=== PATIENT | male | born 1970 | race Caucasian/White ===

== ENCOUNTER 2020-12-07 21:26 | Inpatient (IN) | payer MEDICAID ==
[~2020-12-07] VITALS: Ht 177.8 cm; Wt 128.6 kg
[2020-12-07 22:24] VITALS: BP 160/95
[2020-12-08] MEDS ORDERED: NITROGLYCERIN 0.4 MG BOTTLE (25 TABS) SL PRN ×2 (01:00→01:30)
[2020-12-08] MEDS ORDERED: MAGNESIUM HYDROXIDE 8%, 30ML UDC PO PRN (01:00)
[2020-12-08] MEDS ORDERED: ENOXAPARIN 40 MG/0.4 ML SQ SCH (01:00)
[2020-12-08] MEDS ORDERED: ACETAMINOPHEN 650 MG/20.3 ML UDC PO PRN (01:00)
[2020-12-08] MEDS ORDERED: ONDANSETRON 2MG/ML, 2ML IV PRN (01:00)
[2020-12-08] MEDS ORDERED: NITROGLYCERIN 0.4 MG/SPRAY SL PRN (01:30)
[2020-12-08] MEDS ORDERED: PLEASE ENTER ALLERGIES MC SCH (01:30)
[2020-12-08] MEDS: ATORVASTATIN 80 MG TABLET PO SCH ×2 (02:18→20:44)
[2020-12-08] MEDS: FUROSEMIDE 20 MG/2 ML IVPush SCH ×2 (02:18→07:50)
[2020-12-08] MEDS: MORPHINE SULFATE 4 MG/ML, 1ML IVPush PRN ×2 (02:19→07:50)
[2020-12-08 02:24] VITALS: BP 176/118
[2020-12-08] MEDS ORDERED: hydrALAzine 20 MG/ML, 1ML IV ONE (03:00)
[2020-12-08 03:18] LABS: TROPONIN I 0.015 ng/mL (0.000-0.045)
[2020-12-08 04:30] VITALS: BP 161/98
[2020-12-08 05:02] LABS: BASOPHILS % (AUTO) 1 % (0-1); EOSINOPHILS % (AUTO) 5 % (1-7); LYMPHOCYTES % (AUTO) 45 % (22-44); MEAN CORPUSCULAR HEMOGLOBIN 32.4 pg (27.5-34.5); MEAN CORPUSCULAR HGB CONC 35.4 g/dL (33.2-36.2); MEAN PLATELET VOLUME 8.4 fL (7.4-10.4); MONOCYTES % (AUTO) 8 % (2-9); NEUTROPHILS % (AUTO) 42 % (42-75); PLATELET COUNT 258 x10^3/uL (130-400); RED BLOOD COUNT 4.98 x10^6/uL (4.38-5.82); RED CELL DISTRIBUTION WIDTH 13.2 % (9.4-14.8)
[2020-12-08 05:09] LABS: ALBUMIN 3.6 g/dL (3.4-5.0); ANION GAP 6 mmol/L (5-15); CHLORIDE 102 mmol/L (98-107)
[2020-12-08 05:17] LABS: ALANINE AMINOTRANSFERASE 62 U/L (12-78); ALKALINE PHOSPHATASE 93 U/L (45-117); BILIRUBIN,TOTAL 1.1 mg/dL (0.2-1.0); CHOL/HDL RATIO 4.9; CHOLESTEROL, TOTAL 197 mg/dL (140-239); CREATININE 1.06 mg/dL (0.7-1.3); HDL CHOL % 20 % (26-37); HDL CHOLESTEROL (DIRECT) 40 mg/dL (40-60); LDL CHOLESTEROL,CALCULATED 129 mg/dL (54-169); LDL/HDL RATIO 3.2 (0.5-3.0); TRIGLYCERIDES 139 mg/dL (50-200); TROPONIN I < 0.015 ng/mL (0.000-0.045); VLDL CHOLESTEROL 28 mg/dL (0-25)
[2020-12-08] MEDS ORDERED: CARVEDILOL 3.125 MG TABLET PO SCH ×2 (06:00)
[2020-12-08] MEDS ORDERED: hydrALAzine 20 MG/ML, 1ML IV PRN (06:00)
[2020-12-08] MEDS ORDERED: LABETALOL 5MG/ML, 20ML IVPush PRN (06:00)
[2020-12-08] MEDS: ASPIRIN 81 MG TABLET EC PO SCH (06:05)
[2020-12-08 07:28] VITALS: BP 201/117
[2020-12-08] MEDS ORDERED: POTASSIUM CHLORIDE 20 MEQ TAB.ER.PRT PO ONE (07:30)
[2020-12-08] MEDS: hydrALAzine 20 MG/ML, 1ML IV PRN (07:50)
[2020-12-08] MEDS ORDERED: LISINOPRIL 5 MG TABLET PO SCH (09:00)
[2020-12-08 09:33] VITALS: BP 157/80
[2020-12-08 10:09] LABS: AMPHETAMINE SCREEN, URINE Negative (Negative); BARBITURATE SCREEN, URINE Negative (Negative); BENZODIAZEPINE SCREEN, URINE Negative (Negative); CANNABINOID SCREEN, URINE Positive (Negative); COCAINE SCREEN, URINE Negative (Negative); METHADONE SCREEN, URINE Negative (Negative); OPIATE SCREEN, URINE Positive (Negative)
[2020-12-08 12:48] VITALS: BP 170/107
[2020-12-08] MEDS: ACETAMINOPHEN 325 MG TABLET PO PRN ×2 (13:14→20:43)
[2020-12-08 13:21] LABS: TROPONIN I < 0.015 ng/mL (0.000-0.045)
[2020-12-08] MEDS: INSULIN LISPRO 100 UNITS/ML, PEN SQ-INSULIN SCH ×2 (17:12→20:44)
[2020-12-08] MEDS: VALSARTAN 160 MG TABLET PO SCH (17:12)
[2020-12-08] MEDS: CARVEDILOL 6.25 MG TABLET PO SCH (17:12)
[2020-12-08 19:51] VITALS: BP 151/108
[2020-12-08] MEDS: ENOXAPARIN 40 MG/0.4 ML SQ SCH (20:45)
[2020-12-09 00:34] VITALS: BP 127/86
[2020-12-09 05:43] VITALS: BP 144/89
[2020-12-09] MEDS: ASPIRIN 81 MG TABLET EC PO SCH (05:44)
[2020-12-09] MEDS: CARVEDILOL 6.25 MG TABLET PO SCH (05:44)
[2020-12-09 05:50] LABS: BASOPHILS % (AUTO) 1 % (0-1); EOSINOPHILS % (AUTO) 4 % (1-7); LYMPHOCYTES % (AUTO) 36 % (22-44); MEAN CORPUSCULAR HEMOGLOBIN 32.5 pg (27.5-34.5); MEAN PLATELET VOLUME 8.3 fL (7.4-10.4); MONOCYTES % (AUTO) 9 % (2-9); NEUTROPHILS % (AUTO) 50 % (42-75); PLATELET COUNT 281 x10^3/uL (130-400); RED BLOOD COUNT 5.25 x10^6/uL (4.38-5.82); RED CELL DISTRIBUTION WIDTH 13.4 % (9.4-14.8)
[2020-12-09 05:56] LABS: ANION GAP 8 mmol/L (5-15); CALCIUM 9.4 mg/dL (8.5-10.1); CHLORIDE 105 mmol/L (98-107); CREATININE 1.05 mg/dL (0.7-1.3)
[2020-12-09 06:48] VITALS: BP 161/104
[2020-12-09] MEDS ORDERED: POTASSIUM CHLORIDE 20 MEQ TAB.ER.PRT PO ONE (07:00)
[2020-12-09] MEDS: INSULIN LISPRO 100 UNITS/ML, PEN SQ-INSULIN SCH ×4 (08:08→21:00)
[2020-12-09] MEDS: VALSARTAN 160 MG TABLET PO SCH (08:09)
[2020-12-09] MEDS: ENOXAPARIN 40 MG/0.4 ML SQ SCH ×2 (08:09→20:56)
[2020-12-09] MEDS: ACETAMINOPHEN 325 MG TABLET PO PRN ×4 (08:23→21:59)
[2020-12-09] MEDS ORDERED: SODIUM CHLORIDE 0.9% 1,000 ML IV SCH (09:00)
[2020-12-09] MEDS ORDERED: HEPARIN 1,000 UNITS/ML, 10ML ONE (09:37)
[2020-12-09] MEDS ORDERED: BIVALIRUDIN 250 MG ONE ×2 (09:37→09:48)
[2020-12-09] MEDS ORDERED: MIDAZOLAM 1 MG/ML, 5ML ONE (09:37)
[2020-12-09] MEDS ORDERED: LIDOCAINE-MPF 1%, 5ML ONE (09:37)
[2020-12-09] MEDS ORDERED: VERAPAMIL 2.5 MG/ML, 2ML ONE (09:37)
[2020-12-09] MEDS ORDERED: FENTANYL PF 100 MCG/2ML ONE (09:37)
[2020-12-09] MEDS ORDERED: hydrALAzine 20 MG/ML, 1ML ONE (10:32)
[2020-12-09 12:35] VITALS: BP 177/106
[2020-12-09] MEDS: hydrALAzine 20 MG/ML, 1ML IV PRN (12:41)
[2020-12-09] MEDS: CARVEDILOL 12.5 MG TABLET PO SCH (17:23)
[2020-12-09 18:37] VITALS: BP 154/77
[2020-12-09] MEDS: ATORVASTATIN 80 MG TABLET PO SCH (20:56)
[2020-12-09] MEDS: HYDROCHLOROTHIAZIDE 12.5 MG CAPSULE PO SCH (20:56)
[2020-12-10 04:57] VITALS: BP 139/93
[2020-12-10] MEDS: ASPIRIN 81 MG TABLET EC PO SCH (04:58)
[2020-12-10] MEDS: CARVEDILOL 12.5 MG TABLET PO SCH (04:58)
[2020-12-10 06:35] LABS: ANION GAP 7 mmol/L (5-15); CALCIUM 9.5 mg/dL (8.5-10.1); CHLORIDE 108 mmol/L (98-107); CREATININE 0.91 mg/dL (0.7-1.3)
[2020-12-10] MEDS ORDERED: POTASSIUM CHLORIDE 20 MEQ TAB.ER.PRT PO ONE (07:00)
[2020-12-10 07:25] VITALS: BP 170/112
[2020-12-10] MEDS: HYDROCHLOROTHIAZIDE 12.5 MG CAPSULE PO SCH (08:14)
[2020-12-10] MEDS: ENOXAPARIN 40 MG/0.4 ML SQ SCH (08:15)
[2020-12-10] MEDS: INSULIN LISPRO 100 UNITS/ML, PEN SQ-INSULIN SCH ×2 (08:15→11:20)
[2020-12-10] MEDS: VALSARTAN 160 MG TABLET PO SCH (08:15)
[2020-12-10] MEDS ORDERED: VALS160T27 PO (09:29)
[2020-12-10] MEDS ORDERED: CLOP75TA PO (09:29)
[2020-12-10] MEDS ORDERED: METF-754 PO (09:29)
[2020-12-10] MEDS ORDERED: ATOR-2 PO (09:29)
[2020-12-10] MEDS ORDERED: CARV12.52 PO (09:29)
[2020-12-10] MEDS ORDERED: HYDR12.517 PO (09:29)
[2020-12-10] MEDS ORDERED: INSU100V8 SQ (09:29)
[2020-12-10] MEDS ORDERED: ASPI81TA45 PO (09:29)
[2020-12-10] MEDS ORDERED: CLOPIDOGREL 300 MG TABLET PO ONE (09:30)
[2020-12-11] MEDS ORDERED: CLOPIDOGREL 75 MG TABLET PO SCH (09:00)
== END 2020-12-10 11:29 | disposition home or self-care (01) | DRG 191 ==
LOC: 5SO 22:20
PROVIDERS: ADMIT Internal Medicine; ATTEND Family Medicine
PROC: 4A023N7 Measurement of Cardiac Sampling and Pressure, Left Heart, Percutaneous Approach (ICD-10-PCS; principal; 2020-12-09)
PROC: B2111ZZ Fluoroscopy of Multiple Coronary Arteries using Low Osmolar Contrast (ICD-10-PCS; 2020-12-09)
PROC: B2151ZZ Fluoroscopy of Left Heart using Low Osmolar Contrast (ICD-10-PCS; 2020-12-09)
DX: I25.110 Atherosclerotic heart disease of native coronary artery with unstable angina pectoris (principal); I11.0 Hypertensive heart disease with heart failure; I50.9 Heart failure, unspecified; E11.65 Type 2 diabetes mellitus with hyperglycemia; Z95.1 Presence of aortocoronary bypass graft; E66.01 Morbid (severe) obesity due to excess calories; I16.0 Hypertensive urgency; E78.5 Hyperlipidemia, unspecified; F12.90 Cannabis use, unspecified, uncomplicated; G43.909 Migraine, unspecified, not intractable, without status migrainosus; M54.9 Dorsalgia, unspecified; E87.70 Fluid overload, unspecified; R77.8 Other specified abnormalities of plasma proteins; G89.29 Other chronic pain; I25.5 Ischemic cardiomyopathy; Z68.41 Body mass index [BMI] 40.0-44.9, adult; I25.2 Old myocardial infarction; Z82.3 Family history of stroke; Z82.49 Family history of ischemic heart disease and other diseases of the circulatory system; Z87.891 Personal history of nicotine dependence; Z88.2 Allergy status to sulfonamides; Z88.8 Allergy status to other drugs, medicaments and biological substances
CPT/HCPCS: 36415; 80048; 80053; 80061; 80307; 82962; 83036; 83735; 84484; 85025; 93005; 93306; 93356; 93458; 99156; 99157; C1769; C1894; G0378; J0583; J1644; J1650; J2250; J3010; J0360; J1815; J1940; J2270; J7030; Q9967